=== PATIENT | male | born 1950 | race Caucasian/White ===

== ENCOUNTER 2016-09-17 06:03 | Day surgery (SDC) | payer OTHER, MEDICARE ==
[2016-09-17] MEDS ORDERED: LR 1,000 ML IV ONE (06:43)
[2016-09-17] MEDS ORDERED: LIDOCAINE 1% 30 ML SDV ONE (06:45)
[2016-09-17] MEDS ORDERED: BUPIVACAINE 0.5% 30 ML SDV ONE (06:45)
[2016-09-17] MEDS ORDERED: MIDAZOLAM 2 MG/2 ML VIAL ONE (07:11)
[2016-09-17] MEDS ORDERED: PROPOFOL/EMULSION 500 MG/50 ML BOTTLE IV ONE (07:19)
[2016-09-17] MEDS ORDERED: fentaNYL 100 MCG/2 ML INJ ONE (07:22)
[2016-09-17] MEDS ORDERED: DEXAMETHASONE 4 MG/ML VIAL ONE (07:42)
[2016-09-17] MEDS ORDERED: OXYCODONE/APAP 5/325 TAB PO PRN (09:33)
--- NOTE | 2016-09-17 10:42 | GOP ---
[f rep st] OPERATIVE REPORT DATE OF OPERATION: 09/17/2016 SURGEON: Aden Galindo MD ANESTHESIA: Monitored anesthetic care. ANESTHESIOLOGIST: Yoly Daniel MD PREOPERATIVE DIAGNOSIS: Left inguinal hernia. POSTOPERATIVE DIAGNOSIS: Left inguinal hernia. PROCEDURE PERFORMED: Left inguinal hernia repair. FINDINGS: The patient had a [id number]-[id number] indirect hernia with a small lipoma. ESTIMATED BLOOD LOSS: 20 cc. INDICATIONS: 66-year-old male with a history of left groin bulge. Risks and benefits of the proced ure were discussed with the patient, questions were answered, and he wished to proceed. DESCRIPTION OF PROCEDURE: The patient was placed in the supine position. After the induction of ad equate IV sedation, the patient was prepped and draped in the standard surgical fashion. Marcaine 0 .5% was injected throughout the left groin for local anesthesia. An oblique incision was made and ca rried to the subcutaneous tissue using cautery. The external oblique was incised in the direction o f its fibers. The cord was then surrounded at the pubic tubercle. The cord structures were then car efully dissected, preserving the vas and vessels. The hernia was then dissected down to preperitone al fat and reduced. A plug was fashioned from Mar[employer] and secured using 2-0 Vicryl interrupted. An onlay patch was created and affixed using 2-0 Prolene. Enough room was seen for the cord and an ins trument tip. Good hemostasis was noted. The external oblique and Monica's were approximated using 3 -0 Vicryl in a running fashion. Skin was closed with 5-0 Biosyn subcuticular. The wound was steril vitor dressed, the patient was taken to the post-anesthesia care unit in stable condition. COMPLICATIONS: None. DRAINS: None. /[id number]/MODL
== END 2016-09-17 10:15 | disposition home or self-care (01) ==
LOC: FSGY 06:03
PROVIDERS: ATTEND Surgery
PROC: 0YU60JZ Supplement Left Inguinal Region with Synthetic Substitute, Open Approach (ICD-10-PCS; principal; 2016-09-17 07:15)
DX: K40.90 Unilateral inguinal hernia, without obstruction or gangrene, not specified as recurrent (principal)
CPT/HCPCS: C1781; J0690; J1100; J2250; J2704; J3010